=== PATIENT | female | born 1930 | race African-American/Black ===

== ENCOUNTER 2016-12-31 16:17 | Inpatient (IN) | payer MEDICARE, BC ==
[~2016-12-31] VITALS: Ht 160 cm; Wt 64.9 kg
[~2016-12-31 16:17] MED LIST: ACET-2178 PO; AMLO2.5T45 PO; ASPI-1159 PO; ATOR40TA70 PO; BENZ100C86 PO; CHOL50003 PO; COR6 PO; ISOS60TA4 PO; LISI2.5T47 PO; MULT-1146 PO; P20 PO; WARF2TAB57 PO
[2016-12-31] MEDS ORDERED: ONDANSETRON HCL 4MG/2ML VIAL IV STA (16:51)
[2016-12-31] MEDS ORDERED: MORPHINE SULFATE 4 MG/ML CPJ (NOT FOR IM USE) IV STA (16:51)
[2016-12-31 18:19] LABS: EOSINOPHILS % 2.1 % (0.0-5.0); HEMATOCRIT. 35.1 % (36.0-48.0); HEMOGLOBIN. 11.7 g/dL (12.0-16.0); MEAN CORPUSCULAR HEMOGLOBIN 31.7 pg (28.0-32.0); MEAN CORPUSCULAR VOLUME 95.1 fL (81.0-99.0); MEAN PLATELET VOLUME 9.5 fl (7.4-10.4); MONOCYTES % 9.5 % (2.0-8.0); NEUTROPHILS % 45.4 % (40.0-76.0); PLATELET 151 x1000/uL (130-400); RED BLOOD CELL COUNT 3.69 mill/uL (4.2-5.4); RED CELL DISTRIBUTION WIDTH 15.8 % (11.6-14.6)
[2016-12-31 18:25] LABS: CHLORIDE 107 mEq/L (98-107)
[2016-12-31 18:26] LABS: PARTIAL THROMBOPLASTIN TIME 27.5 sec (23.4-31.0); PROTHROMBIN TIME 10.9 sec (9.4-11.6)
[2016-12-31 18:27] LABS: CARBON DIOXIDE 24 mEq/L (21-32)
[2016-12-31 18:35] LABS: TROPONIN I < 0.02 ng/mL (0.00-0.04)
[2016-12-31] MEDS ORDERED: ACETAMINOPHEN 650MG SUPP PR PRN (22:00)
[2016-12-31] MEDS ORDERED: ACETAMINOPHEN 650MG/20.3ML UDC GT PRN (22:00)
[2016-12-31] MEDS ORDERED: ACETAMINOPHEN 325MG TABLET PO PRN (22:00)
[2016-12-31] MEDS ORDERED: DIPHENHYDRAMINE 50MG/ML VIAL IV PRN (22:00)
[2016-12-31] MEDS ORDERED: HYDROCODONE/ACETAMINOPHEN 5/325MG TABLET PO PRN (22:00)
[2016-12-31] MEDS ORDERED: IPRATROPIUM/ALBUTEROL 0.5-3(2.5)MG/3ML NEB INH PRN (22:00)
[2016-12-31] MEDS ORDERED: HYDROCODONE/ACETAMINOPHEN 10/325MG TABLET PO PRN (22:00)
[2016-12-31] MEDS ORDERED: SODIUM CHLORIDE 0.9% 250 ML IV ONE (23:00)
[2016-12-31 23:16] LABS: CREATINE KINASE 71 IU/L (26-192); TROPONIN I < 0.02 ng/mL (0.00-0.04)
[2017-01-01] VITALS: BP 131/68
[2017-01-01] MEDS: SODIUM CHLORIDE 0.9% INJ 3ML FLUSH IVF SCH ×3 (05:48→21:16)
[2017-01-01 06:00] VITALS: BP 126/52
[2017-01-01 06:50] LABS: BASOPHILS % 1.2 % (0.0-2.0); EOSINOPHILS % 1.9 % (0.0-5.0); HEMATOCRIT. 32.3 % (36.0-48.0); HEMOGLOBIN. 10.8 g/dL (12.0-16.0); LYMPHOCYTES % 43.7 % (20.0-50.0); MEAN CORPUSCULAR VOLUME 95.6 fL (81.0-99.0); MEAN PLATELET VOLUME 10.1 fl (7.4-10.4); MONOCYTES % 12.8 % (2.0-8.0); NEUTROPHILS % 40.4 % (40.0-76.0); PLATELET 143 x1000/uL (130-400); RED BLOOD CELL COUNT 3.37 mill/uL (4.2-5.4); RED CELL DISTRIBUTION WIDTH 15.7 % (11.6-14.6)
[2017-01-01 07:30] VITALS: BP 136/63
[2017-01-01 08:43] LABS: CARBON DIOXIDE 24 mEq/L (21-32); CHLORIDE 109 mEq/L (98-107); HDL CHOLESTEROL 67 mg/dL (40-59); LDL CHOLESTEROL 75 mg/dL (5-100)
[2017-01-01 09:01] LABS: TROPONIN I 0.02 ng/mL (0.00-0.04)
[2017-01-01 09:04] LABS: CLARITY URINE CLEAR (CLEAR); COLOR URINE YELLOW (YELLOW); GLUCOSE URINE NEGATIVE (NEGATIVE); KETONES URINE NEGATIVE (NEGATIVE); LEUKOCYTE ESTERASE URINE TRACE (NEGATIVE); NITRITE URINE NEGATIVE (NEGATIVE); OCCULT BLOOD URINE NEGATIVE (NEGATIVE); PH URINE 6.5 (4.5-8.0); PROTEIN URINE TRACE (NEGATIVE); SPECIFIC GRAVITY URINE 1.013 (1.005-1.030); UROBILINOGEN URINE 0.2 E.U./dL (0.2-1.0)
[2017-01-01] MEDS: ASPIRIN 81MG TABLET PO SCH (09:05)
[2017-01-01] MEDS: ENOXAPARIN 30MG/0.3ML SYR SUBCUT SCH (09:05)
[2017-01-01 09:43] LABS: *AMPHETAMINES SCREEN URINE NEGATIVE (NEGATIVE); *BARBITURATES SCREEN URINE NEGATIVE (NEGATIVE); *BENZODIAZEPINES SCREEN URINE NEGATIVE (NEGATIVE); *COCAINE SCREEN URINE NEGATIVE (NEGATIVE); CANNABINOID URINE SCREEN NEGATIVE (NEGATIVE); METHADONE URINE SCREEN NEGATIVE (NEGATIVE); OPIATES URINE SCREEN PRESUMTIVE POSITIVE (NEGATIVE); PHENCYCLIDINE URINE SCREEN NEGATIVE (NEGATIVE)
[2017-01-01] MEDS ORDERED: SODIUM CHLORIDE 0.9% 1,000 ML IV SCH (10:45)
[2017-01-01 11:21] LABS: T4 FREE 0.99 ng/dL (0.76-1.46)
[2017-01-01 11:45] VITALS: BP 141/73
[2017-01-01 15:37] VITALS: BP 153/74
[2017-01-01 16:59] LABS: CREATINE KINASE 65 IU/L (26-192); CREATINE KINASE MB FRACTION 1.3 ng/mL (0.5-3.6)
[2017-01-01 17:05] LABS: TROPONIN I < 0.02 ng/mL (0.00-0.04)
[2017-01-01] MEDS ORDERED: AMLODIPINE 10MG TABLET PO NR (18:15)
[2017-01-01 20:00] VITALS: BP 107/55
[2017-01-02] VITALS: BP 122/65
[2017-01-02 01:28] LABS: CREATINE KINASE MB FRACTION 1.3 ng/mL (0.5-3.6)
[2017-01-02 01:39] LABS: TROPONIN I 0.02 ng/mL (0.00-0.04)
[2017-01-02] MEDS: MAGNESIUM/ALUMINUM HYDROXIDE/SIMETHICONE 30ML UDC PO PRN (02:48)
[2017-01-02 04:00] VITALS: BP 140/61
[2017-01-02] MEDS: SODIUM CHLORIDE 0.9% INJ 3ML FLUSH IVF SCH ×3 (06:00→22:03)
[2017-01-02 07:18] VITALS: BP 139/72
[2017-01-02] MEDS: AMLODIPINE 10MG TABLET PO SCH (08:06)
[2017-01-02] MEDS: ASPIRIN 81MG TABLET PO SCH (08:06)
[2017-01-02] MEDS: ENOXAPARIN 30MG/0.3ML SYR SUBCUT SCH (08:08)
[2017-01-02] MEDS ORDERED: ACETAMINOPHEN 325MG TABLET PO PRN (11:45)
[2017-01-02] MEDS ORDERED: AMLODIPINE 2.5MG TABLET PO SCH (11:45)
[2017-01-02] MEDS ORDERED: BENZONATATE 100MG CAPSULE PO PRN (11:45)
[2017-01-02 12:00] VITALS: BP 144/64
[2017-01-02] MEDS: LISINOPRIL 2.5MG TABLET PO SCH (12:19)
[2017-01-02] MEDS: CARVEDILOL 25MG TABLET PO SCH ×2 (12:20→21:00)
[2017-01-02] MEDS: PREDNISONE 20MG TABLET PO SCH (12:20)
[2017-01-02 13:58] LABS: CREATINE KINASE 61 IU/L (26-192); CREATINE KINASE MB FRACTION 1.4 ng/mL (0.5-3.6); TROPONIN I < 0.02 ng/mL (0.00-0.04)
[2017-01-02] MEDS ORDERED: SODIUM CHLORIDE 0.9% 1,000 ML IV STA (15:05)
[2017-01-02] MEDS: ISOSORBIDE MONONITRATE 120MG TABLET SR 24HR PO SCH (15:07)
[2017-01-02 16:00] VITALS: BP 140/61
[2017-01-02] MEDS ORDERED: WARFARIN SODIUM 4MG TABLET PO SCH (18:00)
[2017-01-02 18:35] LABS: HEMATOCRIT. 35.4 % (36.0-48.0); HEMOGLOBIN. 11.7 g/dL (12.0-16.0); MEAN CORPUSCULAR HEMOGLOBIN 32.1 pg (28.0-32.0); MEAN CORPUSCULAR VOLUME 97.2 fL (81.0-99.0); MEAN PLATELET VOLUME 10.1 fl (7.4-10.4); PLATELET 150 x1000/uL (130-400); RED BLOOD CELL COUNT 3.64 mill/uL (4.2-5.4); RED CELL DISTRIBUTION WIDTH 16.4 % (11.6-14.6)
[2017-01-02 18:47] LABS: CARBON DIOXIDE 23 mEq/L (21-32); CHLORIDE 106 mEq/L (98-107)
[2017-01-02 19:34] LABS: NUCLEATED RED BLOOD CELLS 1 /100 WBC; PLATELET ESTIMATE NORMAL
[2017-01-02 20:00] VITALS: BP 98/55
[2017-01-02] MEDS: ONDANSETRON HCL 4MG/2ML VIAL IV PRN (20:07)
[2017-01-02] MEDS: ATORVASTATIN CALCIUM 40MG TABLET PO SCH (22:03)
[2017-01-03 00:25] VITALS: BP 99/52
[2017-01-03] MEDS: METOCLOPRAMIDE HCL 10MG/2ML VIAL IV SCH ×4 (03:10→17:43)
[2017-01-03 04:00] VITALS: BP 97/51
[2017-01-03 06:23] LABS: PROTHROMBIN TIME 10.6 sec (9.4-11.6)
[2017-01-03] MEDS: SODIUM CHLORIDE 0.9% INJ 3ML FLUSH IVF SCH ×3 (06:25→21:38)
[2017-01-03 08:00] VITALS: BP 117/57
[2017-01-03] MEDS ORDERED: ASPIRIN 81MG EC TABLET PO SCH (09:00)
[2017-01-03] MEDS: AMLODIPINE 10MG TABLET PO SCH (09:27)
[2017-01-03] MEDS: LISINOPRIL 2.5MG TABLET PO SCH (09:28)
[2017-01-03] MEDS: CARVEDILOL 25MG TABLET PO SCH ×2 (09:28→21:00)
[2017-01-03] MEDS: ISOSORBIDE MONONITRATE 120MG TABLET SR 24HR PO SCH (09:29)
[2017-01-03] MEDS: ENOXAPARIN 30MG/0.3ML SYR SUBCUT SCH (09:29)
[2017-01-03] MEDS: PREDNISONE 20MG TABLET PO SCH (09:29)
[2017-01-03 12:00] VITALS: BP 96/53
[2017-01-03 12:27] LABS: BASOPHILS % 0.6 % (0.0-2.0); HEMATOCRIT. 37.8 % (36.0-48.0); HEMOGLOBIN. 12.7 g/dL (12.0-16.0); LYMPHOCYTES % 11.4 % (20.0-50.0); MEAN CORPUSCULAR HEMOGLOBIN 31.9 pg (28.0-32.0); MEAN CORPUSCULAR VOLUME 95.4 fL (81.0-99.0); MEAN PLATELET VOLUME 9.8 fl (7.4-10.4); MONOCYTES % 8.1 % (2.0-8.0); NEUTROPHILS % 79.9 % (40.0-76.0); PLATELET 174 x1000/uL (130-400); RED BLOOD CELL COUNT 3.96 mill/uL (4.2-5.4); RED CELL DISTRIBUTION WIDTH 15.3 % (11.6-14.6)
[2017-01-03 13:03] LABS: CARBON DIOXIDE 22 mEq/L (21-32); CHLORIDE 106 mEq/L (98-107)
[2017-01-03] MEDS ORDERED: SODIUM CHLORIDE 0.9% 1,000 ML IV SCH (13:30)
[2017-01-03] MEDS: SODIUM CHLORIDE 0.9% 1,000 ML IV SCH (14:50)
[2017-01-03 16:00] VITALS: BP 107/44
[2017-01-03] MEDS ORDERED: WARFARIN SODIUM 5MG TABLET PO NR (18:00)
[2017-01-03] MEDS: ATORVASTATIN CALCIUM 40MG TABLET PO SCH (20:23)
[2017-01-03 20:40] VITALS: BP 92/47
[2017-01-04] MEDS: METOCLOPRAMIDE HCL 10MG/2ML VIAL IV SCH ×5 (00:08→23:18)
[2017-01-04 00:28] VITALS: BP 116/59
[2017-01-04] MEDS: SODIUM CHLORIDE 0.9% 1,000 ML IV SCH ×2 (03:50→17:16)
[2017-01-04 04:00] VITALS: BP 113/57
[2017-01-04 05:51] LABS: BASOPHILS % 0.1 % (0.0-2.0); HEMOGLOBIN. 12.3 g/dL (12.0-16.0); LYMPHOCYTES % 9.4 % (20.0-50.0); MEAN CORPUSCULAR HEMOGLOBIN 31.7 pg (28.0-32.0); MEAN CORPUSCULAR VOLUME 95.6 fL (81.0-99.0); MEAN PLATELET VOLUME 10.3 fl (7.4-10.4); MONOCYTES % 12.7 % (2.0-8.0); NEUTROPHILS % 77.8 % (40.0-76.0); PLATELET 138 x1000/uL (130-400); RED BLOOD CELL COUNT 3.87 mill/uL (4.2-5.4); RED CELL DISTRIBUTION WIDTH 15.7 % (11.6-14.6)
[2017-01-04 05:55] LABS: INR 1.2; PROTHROMBIN TIME 12.5 sec (9.4-11.6)
[2017-01-04] MEDS: SODIUM CHLORIDE 0.9% INJ 3ML FLUSH IVF SCH ×3 (06:40→21:31)
[2017-01-04 07:54] VITALS: BP 128/65
[2017-01-04] MEDS: AMLODIPINE 10MG TABLET PO SCH (09:25)
[2017-01-04] MEDS: PREDNISONE 20MG TABLET PO SCH (09:26)
[2017-01-04] MEDS: CARVEDILOL 25MG TABLET PO SCH ×2 (09:26→21:31)
[2017-01-04] MEDS: ISOSORBIDE MONONITRATE 120MG TABLET SR 24HR PO SCH (09:26)
[2017-01-04 12:00] VITALS: BP 92/50
[2017-01-04 15:44] LABS: HEMATOCRIT 31.7 % (36.0-48.0); HEMOGLOBIN 10.5 g/dL (12.0-16.0)
[2017-01-04 16:00] VITALS: BP 96/58
[2017-01-04 20:00] VITALS: BP 123/76
[2017-01-04] MEDS: ATORVASTATIN CALCIUM 40MG TABLET PO SCH (21:31)
[2017-01-04] MEDS: ONDANSETRON HCL 4MG/2ML VIAL IV PRN (21:54)
[2017-01-04 23:01] LABS: HEMATOCRIT 29.9 % (36.0-48.0); HEMOGLOBIN 9.8 g/dL (12.0-16.0)
[2017-01-05] VITALS (7 sets, daily range): BP systolic 87–125; BP diastolic 40–79
[2017-01-05] MEDS: SODIUM CHLORIDE 0.9% INJ 3ML FLUSH IVF SCH ×2 (05:26→14:48)
[2017-01-05] MEDS: METOCLOPRAMIDE HCL 10MG/2ML VIAL IV SCH ×3 (05:26→17:55)
[2017-01-05] MEDS: MAGNESIUM/ALUMINUM HYDROXIDE/SIMETHICONE 30ML UDC PO PRN (05:26)
[2017-01-05] MEDS: SODIUM CHLORIDE 0.9% 1,000 ML IV SCH (05:33)
[2017-01-05 06:32] LABS: HEMATOCRIT 28.7 % (36.0-48.0); HEMOGLOBIN 9.6 g/dL (12.0-16.0)
[2017-01-05 07:49] LABS: INR 1.2; PROTHROMBIN TIME 12.6 sec (9.4-11.6)
[2017-01-05] MEDS: CARVEDILOL 25MG TABLET PO SCH (09:00)
[2017-01-05] MEDS: AMLODIPINE 10MG TABLET PO SCH (09:00)
[2017-01-05] MEDS: ISOSORBIDE MONONITRATE 120MG TABLET SR 24HR PO SCH (09:00)
[2017-01-05] MEDS: PREDNISONE 20MG TABLET PO SCH (09:17)
[2017-01-05 11:11] LABS: CARBON DIOXIDE 20 mEq/L (21-32); CHLORIDE 111 mEq/L (98-107)
[2017-01-05] MEDS ORDERED: PROT40 PO (14:09)
[2017-01-05] MEDS ORDERED: PANTOPRAZOLE 40MG DR TABLET PO SCH (14:15)
[2017-01-05 15:12] LABS: HEMATOCRIT 32.3 % (36.0-48.0); HEMOGLOBIN 10.7 g/dL (12.0-16.0)
[2017-01-05] MEDS ORDERED: IOHEXOL-350 100 ML BOTTLE ONE (15:22)
== END 2017-01-05 22:50 | disposition home or self-care (01) | DRG 682 ==
LOC: ER 16:27 → EDBEDREQ 17:03 → 6WST 19:35 → EDBEDREQTM 19:35 → EDBEDREQ 19:35 → ENRESERV 22:11
PROVIDERS: ADMIT Family Medicine; ATTEND Family Medicine
PROC: 02HV33Z Insertion of Infusion Device into Superior Vena Cava, Percutaneous Approach (ICD-10-PCS; principal; 2017-01-03)
PROC: B5181ZA Fluoroscopy of Superior Vena Cava using Low Osmolar Contrast, Guidance (ICD-10-PCS; 2017-01-03)
DX: N17.0 Acute kidney failure with tubular necrosis (principal); J96.00 Acute respiratory failure, unspecified whether with hypoxia or hypercapnia; I13.0 Hypertensive heart and chronic kidney disease with heart failure and stage 1 through stage 4 chronic kidney disease, or unspecified chronic kidney disease; I48.91 Unspecified atrial fibrillation; I50.9 Heart failure, unspecified; R13.10 Dysphagia, unspecified; Z93.1 Gastrostomy status; R07.9 Chest pain, unspecified; D64.9 Anemia, unspecified; J44.9 Chronic obstructive pulmonary disease, unspecified; N18.9 Chronic kidney disease, unspecified; K22.8 Other specified diseases of esophagus; Z79.82 Long term (current) use of aspirin; Z79.02 Long term (current) use of antithrombotics/antiplatelets; Z79.899 Other long term (current) drug therapy; Z88.0 Allergy status to penicillin; Z95.5 Presence of coronary angioplasty implant and graft; Z90.710 Acquired absence of both cervix and uterus; Z98.891 History of uterine scar from previous surgery
CPT/HCPCS: 36415; 36569; 71010; 71275; 74000; 76937; 77001; 78582; 80048; 80053; 80061; 80305; 81001; 82270; 82550; 82553; 83036; 83880; 84439; 84443; 84484; 85014; 85018; 85025; 85379; 85610; 85730; 93005; 93306; 93970; 96374; 96375; 99285; A9558; C1725; C1893; J1200; J1650; J2270; J2405; J2765; J7030; J7050; J7512; Q9967